=== PATIENT | female | born 1975 | race Caucasian/White ===

== ENCOUNTER → 2017-07-01 | Outpatient (REF) ==
[2017-07-01 05:46] LABS: BASO % 0.1 % (0.0-2.0); GRAN # 9.6 (1.4-6.5); GRAN % 78.7 % (42.2-75.2); HEMATOCRIT 28.3 % (37.0-47.0); HEMOGLOBIN 8.8 g/dl (12.5-16.0); LYMPH # 1.7 (1.2-3.4); LYMPH % 13.6 % (20.0-51.0); MEAN CELL VOLUME 83 fl (80.0-100.0); MEAN CORPUSCULAR HEMOGLOBIN 26 pg (27.0-31.0); MEAN CORPUSCULAR HGB CONC 31 g/dl (33.0-37.0); MEAN PLATELET VOLUME 10.8 fl (7.4-10.4); MONO # 0.9 (0.1-0.6); MONO % 7.2 % (1.7-9.3); PLATELET COUNT 369 K/mm3 (130-400); RED BLOOD COUNT 3.42 M/mm3 (4.10-5.30); REDCELL DISTRIBUTION WIDTH-CV 15.8 % (11.5-14.5); WHITE BLOOD COUNT 12.2 K/mm3 (4.8-10.8)
== END ==
LOC: ZMSC 05:42
PROVIDERS: Student in an Organized Health Care Education/Training Program
DX: Z02.89 Encounter for other administrative examinations (principal)

== ENCOUNTER → 2018-03-05 | Outpatient (CLI) | payer BC | LOC: COL.RAD 07:23 | DX: H49.12 Fourth [trochlear] nerve palsy, left eye (principal) | CPT/HCPCS: A9585 ==

== ENCOUNTER 2020-04-28 01:05 | Inpatient (IN) | payer BC ==
[~2020-04-28] VITALS: Ht 157.5 cm; Wt 135.0 kg
[2020-04-28] VITALS (8 sets, daily range): BP systolic 113–140; BP diastolic 70–86; PULSE 58–69; TEMP 97.6–98.9
[2020-04-28] MEDS ORDERED: CONCERTA36 MG PO (01:16)
[2020-04-28] MEDS ORDERED: PRILOTC (01:17)
[2020-04-28 01:50] LABS: BASO # 0.1 (0.0-0.2); BASO % 0.6 % (0.0-2.0); EOS # 0.2 (0.0-0.7); EOS % 2.6 % (0-4.0); GRAN # 4.1 (1.4-6.5); GRAN % 52.3 % (42.2-75.2); HEMATOCRIT 40.4 % (37.0-47.0); HEMOGLOBIN 13.5 g/dl (12.5-16.0); LYMPH % 38.6 % (20.0-51.0); MEAN CELL VOLUME 87 fl (80.0-100.0); MEAN CORPUSCULAR HEMOGLOBIN 29 pg (27.0-31.0); MEAN CORPUSCULAR HGB CONC 33 g/dl (33.0-37.0); MEAN PLATELET VOLUME 10.1 fl (7.4-10.4); MONO # 0.5 (0.1-0.6); MONO % 5.8 % (1.7-9.3); PLATELET COUNT 283 K/mm3 (130-400); RED BLOOD COUNT 4.63 M/mm3 (4.10-5.30); REDCELL DISTRIBUTION WIDTH-CV 13.4 % (11.5-14.5)
[2020-04-28 02:01] LABS: ALBUMIN 4.6 gm/dL (3.5-5.0); BILIRUBIN,TOTAL 0.6 mg/dL (0.0-1.0); CALCIUM 9.1 mg/dL (8.4-10.2); CREATININE, serum 0.71 (0.52-1.25); TOTAL PROTEIN 8.2 gm/dL (6.4-8.2)
--- NOTE | 2020-04-28 04:35 | NUR ---
Received patient via wheelchair from ER. She is alert and oriented. She still have some abdomonal pain with pain score of 5/10 which she describes as stabbing and pressure that radiates on her chest and back. She just receive Dilaudid in the ER. She is independent in the room. NS at 125ml/hr started at right hand. Instructed patient she's on NPO.
[2020-04-28] MEDS ORDERED: XYZAL5 MG PO (04:46)
--- NOTE | 2020-04-28 12:31 | NUR ---
stopped by but nothing needed at this time.
--- NOTE | 2020-04-28 12:35 | NUR ---
Plan: Unknown, may need surgery and will reassess. Assessment: SW met with patient about DC plan. Patient reports that she just had an ultrsound and has not been in to let her know if she is going to have surgery. Patient reports that she resides locally with her [place] . Patient reports PCP is Whit Patel and she obtains medications from [facility]. is DPOA. Patient denies having any DME use and denies any home health services. Patient denies having any care concerns. ACtion: SW will continue to follow care to help support patient's DC>
--- NOTE | 2020-04-28 20:30 | NUR ---
RECIEVED FROM MEDICAL FLOOR PER BED . POST OP RECOVERY PER MEDICAL UNIT . ALERT . PAIN 7/10 ABDOMINAL AFTER DILAUDID AT 1950. IV LR BY GRAVITY INFUSING WELL. ORIENTED TO ROOM AND PLANOF CARE. VSS. ABD INCISIONS CDI. SCDS STARTED. 2044 PERCOCET 1 PO. 2199 UP TO BR EASILY- STATES FEELS MUCH BETTER NOW AND CHANGES INT OWN CLOTHES. ICE CHIP PO AND SIPS WATER WITH PO MEDS.
--- NOTE | 2020-04-28 20:35 | NUR ---
Patient alert and oriented. clear lung sounds, normal heart rhythm. complain of mild pain this am. pain medication administed by ari Ruffin RN. Laparoscopy was done. Vitals within range. patient transferred to room 220.
--- NOTE | 2020-04-28 20:49 | NUR ---
surgical incision site on the abdomen is clean, dry, and intact.
[2020-04-29] VITALS (8 sets, daily range): BP systolic 104–144; BP diastolic 52–77; PULSE 51–68; TEMP 97.3–98.8
--- NOTE | 2020-04-29 00:30 | NUR ---
NAUSEATED- ZOFRAN IV-RELIEF OBTAINED AFTER SEVERAL MINUTES 0130- ASLEEP
--- NOTE | 2020-04-29 08:20 | NUR ---
Patient calls out stating she feels nauseated. RN to bedside. Patient in bathroom, voids 100ml dark bile into emesis basin. Zofran given per orders at 0825. Patient in bed with cold rag. States nausea has improved since vomiting. States pain is stable. Call light within reach.
--- NOTE | 2020-04-29 09:45 | NUR ---
at bedside discussing plan of care for ERCP tomorrow.
--- NOTE | 2020-04-29 10:25 | NUR ---
0925: IV tender and swollen per patient. IVF stopped. IV attempted by Brandon WEINER x2. Multiple IV attempts by Nathan ANTHONY, then started in right wrist area with 22g at 1025. Patient tolerated well.
[2020-04-29 11:09] LABS: BASO % 0.3 % (0.0-2.0); EOS % 0.3 % (0-4.0); GRAN # 5.8 (1.4-6.5); GRAN % 74.9 % (42.2-75.2); HEMOGLOBIN 11.9 g/dl (12.5-16.0); LYMPH # 1.2 (1.2-3.4); LYMPH % 15.7 % (20.0-51.0); MEAN CELL VOLUME 89 fl (80.0-100.0); MEAN CORPUSCULAR HEMOGLOBIN 29 pg (27.0-31.0); MEAN CORPUSCULAR HGB CONC 33 g/dl (33.0-37.0); MEAN PLATELET VOLUME 10.7 fl (7.4-10.4); MONO # 0.7 (0.1-0.6); MONO % 8.4 % (1.7-9.3); PLATELET COUNT 271 K/mm3 (130-400); RED BLOOD COUNT 4.07 M/mm3 (4.10-5.30); REDCELL DISTRIBUTION WIDTH-CV 13.4 % (11.5-14.5)
[2020-04-29 11:16] LABS: HEMATOCRIT 36.2 % (37.0-47.0)
[2020-04-29 11:21] LABS: CREATININE, serum 0.71 (0.52-1.25); TOTAL PROTEIN 7.1 gm/dL (6.4-8.2)
--- NOTE | 2020-04-29 13:50 | NUR ---
Patient calls out reporting nausea and vomiting. 100ml dark bile noted in emesis basin. Phenergan given, see eMAR.
--- NOTE | 2020-04-29 14:50 | NUR ---
Patient sleeping. SpO2 99-100%, HR 48-55. Will continue to monitor. Provider updated, see physician notification.
--- NOTE | 2020-04-29 15:30 | NUR ---
Patient continues to rest. SpO2 100%, HR 59, RR 16.
--- NOTE | 2020-04-29 16:55 | NUR ---
Patient sleeping. SpO2 99%, HR 60.
[2020-04-30] VITALS (9 sets, daily range): BP systolic 103–138; BP diastolic 59–75; PULSE 52–87; TEMP 97.8–98.2
[2020-04-30 07:12] LABS: BASO % 0.4 % (0.0-2.0); EOS # 0.1 (0.0-0.7); EOS % 2.2 % (0-4.0); GRAN # 1.7 (1.4-6.5); GRAN % 37.6 % (42.2-75.2); HEMOGLOBIN 10.8 g/dl (12.5-16.0); LYMPH # 2.4 (1.2-3.4); LYMPH % 50.9 % (20.0-51.0); MEAN CELL VOLUME 91 fl (80.0-100.0); MEAN CORPUSCULAR HEMOGLOBIN 29 pg (27.0-31.0); MEAN CORPUSCULAR HGB CONC 32 g/dl (33.0-37.0); MEAN PLATELET VOLUME 10.5 fl (7.4-10.4); MONO # 0.4 (0.1-0.6); MONO % 8.7 % (1.7-9.3); PLATELET COUNT 216 K/mm3 (130-400); RED BLOOD COUNT 3.68 M/mm3 (4.10-5.30); REDCELL DISTRIBUTION WIDTH-CV 13.9 % (11.5-14.5)
[2020-04-30 07:13] LABS: HEMATOCRIT 33.5 % (37.0-47.0)
[2020-04-30 07:23] LABS: ALBUMIN 3.4 gm/dL (3.5-5.0); BILIRUBIN,TOTAL 2.8 mg/dL (0.0-1.0); CALCIUM 8.6 mg/dL (8.4-10.2); CREATININE, serum 0.87 (0.52-1.25); POTASSIUM 4.4 mmol/L (3.4-5.0); TOTAL PROTEIN 6.3 gm/dL (6.4-8.2)
--- NOTE | 2020-04-30 09:17 | NUR ---
Initial visit; Patient resting, Caramel Candy Maker Helper left prayer card along with information regarding the availability of spiritual care at our hospital.
--- NOTE | 2020-04-30 11:26 | NUR ---
1100 PT CALLED OUT STATING IV IS STARTING TO HURT. IV FLUSHED WITH NS AND PT TOLERATED WELL . REDNESS NOTED APPROX 1 CM BELOW IV INSERTION SITE. PT REQUESTS TO KEEP IV IN AT THIS TIME DUE TO BEING A "HARD STICK". NS INFUSING AT 30ML/HR PER ORDER WITH CIPRO PIGGYBACK AT 100ML/HR. 1130 HUSAM AGARWAL TO FLOOR TO TAKE PATIENT FOR ERCP. PT NS INFUSING. CIPRO STOPPED AT THIS TIME. 1134 PT AMBULATED ON TO PT BED AND LEFT UNIT WITH HUSAM AGARWAL AT THIS TIME.
[2020-04-30] MEDS ORDERED: FLAGYL500 MG PO (13:41)
[2020-04-30] MEDS ORDERED: CIPRO 500MG TA500 MG PO (13:41)
[2020-04-30 13:42] LABS: COLLECTION METHOD CLEAN CATCH
[2020-04-30] MEDS ORDERED: MOTRIN 600600 MG/TAB PO (13:42)
[2020-04-30] MEDS ORDERED: PERCOCET 325 MG1 TA2 PO (13:42)
[2020-04-30] MEDS ORDERED: COLACE 100100 MG/CAP PO (13:42)
--- NOTE | 2020-04-30 13:44 | NUR ---
1315 PT BACK TO FLOOR AND AMBULATED TO BED. 22G IV IN R FA, INFUSING NS AND RESUMED CIPRO. INCISIONS ON ABD CDI. PT UP TO RESTROOM TO URINATE AND COLLECTED URINE FOR UA. PT BACK TO BED AND RESTING COMFORTABLY. VSS. 1340 DR. CISSE AT BEDSIDE. UPDATED PATIENT WITH POC. PERSCRIPTIONS PRINTED AND GIVEN TO RN.
[2020-04-30 13:50] LABS: PH 6 (5-8); SQUAMOUS EPITHELIAL 0-2 /hpf; URINE APPEARANCE Clear; URINE BACTERIA None Seen /hpf; URINE BILIRUBIN Negative (NEGATIVE); URINE BLOOD Negative (NEGATIVE); URINE COLOR Yellow; URINE GLUCOSE Negative (NEGATIVE); URINE KETONE Negative (NEGATIVE); URINE LEUKOCYTE ESTERASE Negative (NEGATIVE); URINE NITRATE Negative (NEGATIVE); URINE PROTEIN(semi-quant) Negative (NEGATIVE); URINE RBC 0-2 /hpf; URINE UROBILINOGEN Negative (NEGATIVE); URINE WBC 0-2 /hpf
--- NOTE | 2020-04-30 16:49 | NUR ---
1530 PT AMBULATED TO BATHROOM. UNMEASURED VOID. PT ASKING FOR BROTH TO DRINK. TOLERATED WELL. IV SL LOCK. NO COMPLAINS OF NAUSEA. 2 ROXICODONES GIVEN AT THIS TIME. 1630 PT REQUESTING POPSICLE AND JAZMIN CRACKERS. NO COMPLAINTS OF NAUSEA.
--- NOTE | 2020-04-30 18:20 | NUR ---
PT READY FOR DISCHARGE. INSTRUCTIONS GIVEN. PATIENT UNDERSTANDS DC AND HAS NO QUESTIONS AT THIS TIME. SCRIPTS GIVEN.
== END 2020-04-30 18:28 | disposition home or self-care (01) | DRG 419 ==
LOC: COL.ER 01:05 → OB 03:22 → MEDICAL 03:22 → OB 20:55
PROVIDERS: Emergency Medicine; ADMIT Surgery
PROC: BF131ZZ Fluoroscopy of Gallbladder and Bile Ducts using Low Osmolar Contrast (ICD-10-PCS; 2020-04-28)
PROC: 0FT44ZZ Resection of Gallbladder, Percutaneous Endoscopic Approach (ICD-10-PCS; principal; 2020-04-28 15:30)
PROC: 0FC98ZZ Extirpation of Matter from Common Bile Duct, Via Natural or Artificial Opening Endoscopic (ICD-10-PCS; 2020-04-30)
DX: K80.64 Calculus of gallbladder and bile duct with chronic cholecystitis without obstruction (principal); Z90.49 Acquired absence of other specified parts of digestive tract
CPT/HCPCS: C1769; J0690; J0744; J1100; J1170; J1885; J2250; J2405; J2550; J2704; J3010; J7030; J7120; Q9967